=== PATIENT | female | born 1960 | race Caucasian/White ===

== ENCOUNTER → 2016-11-21 | Outpatient (CLI) | payer BC, OTHER ==
--- NOTE | 2016-11-21 08:16 | CT ---
EXAMINATION TYPE: CT foot LT wo con DATE OF EXAM: 11/21/2016 COMPARISON: NONE HISTORY: Left foot pain CT DLP: 210.6 mGycm Automated exposure control for dose reduction was used. Unenhanced CT of the left foot was performed. FINDINGS: I do not see evidence for a displaced fracture or dislocation. There is degenerative narrowing involv ing the tarsal and tarsometatarsal joints with a bony spur formation identified and subchondral cyst formation. Pes planus deformity is identified as well as pes planovalgus foot deformity. Ligamentous and tendinous structures not appropriately evaluated on this examination. The Achilles tendon is emily sly intact. Ankle mortise is intact. IMPRESSION: CHANGES OF OSTEOARTHRITIS AND FLATFOOT DEFORMITY.
== END | disposition home or self-care (01) ==
LOC: RADCTMAIN 07:15
PROVIDERS: ATTEND Orthopaedic Surgery
DX: M19.072 Primary osteoarthritis, left ankle and foot (principal)

== ENCOUNTER → 2018-01-25 | Outpatient (CLI) | payer BC ==
--- NOTE | 2018-01-27 04:34 | MR ---
EXAMINATION TYPE: MR ankle LT wo con DATE OF EXAM: 01/25/2018 COMPARISON: None HISTORY: Lt ankle pain, swelling, limited movement x 2-3 mos Standard multiplanar, multisequence MRI departmental protocol Multiplanar, multisequence images of the left ankle were acquired. FINDINGS: Achilles tendon is intact. Plantar fascia appears intact. There is small plantar calcaneal spurring. There is mild ankle joint effusion. There is 12 mm area of degenerative cystic change in th e anterior calcaneus near the subtalar joint. The collateral ligaments are intact. Ankle mortise is a natomic. There is no evidence of a fracture. There are small degenerative cysts in the inferior talus at the subtalar joint. There is patchy edema in the anterior navicular and also anterior first [place] form bone. There is moderate spurring at the first tarsometatarsal joint. There is edema on both side s of the first second tarsometatarsal joints. The medial and lateral flexor tendons of the ankle appear intact. There is no evidence of a soft tiss ue mass. IMPRESSION: There is mild ankle joint effusion. There is mild osteoarthritis with degenerative cysts on both side s of the subtalar joint. Hypertrophic osteoarthritis in the intertarsal joints on the medial side of the mid foot and the firs t and second tarsometatarsal joint. No fracture seen.
== END | disposition home or self-care (01) ==
LOC: RADMRIMAIN 08:43
PROVIDERS: ATTEND Orthopaedic Surgery
DX: M19.072 Primary osteoarthritis, left ankle and foot (principal); M85.672 Other cyst of bone, left ankle and foot

== ENCOUNTER → 2021-06-21 | Outpatient (CLI) | payer OTHER ==
--- NOTE | 2021-06-22 09:30 | MR ---
EXAMINATION TYPE: MR brain and iac wo/w con DATE OF EXAM: 06/21/2021 COMPARISON: HISTORY: Plugged ear, Hearing loss Rt ear TECHNIQUE: Multiplanar, multisequence images of the brain and brainstem is performed without and with IV contras t, small [id number] and high resolution images obtained through the internal auditory canals, util izing 5.5 mL intravenous Gadavist . FINDINGS: There is motion, artifact on the exam. Diffusion weighted images demonstrate no evidence of a recent infarct or other diffusion abnormality. There is no extra-axial fluid collection. Periventricular, pericallosal, subcortical confluent and scattered hyperintensities are present within the white matter on inversion recovery T2-weighted sequ ences. The ventricular system and cisternal spaces are normal in size and appearance. The brain volu me is age appropriate, there is cortical atrophy. The cerebellopontine angles show no mass, there is no abnormal enhancement along the bleach range operator y canals, no evident abnormal soft tissue Midline structures demonstrate normal morphology. The craniocervical junction appears within normal limits. Post contrast images demonstrate no abnormal enhancement. The dural venous sinuses appear pa tent. The visualized sinuses are remarkable for some mucosal disease in the ethmoid air cells, maxill esperanza sinus right greater than left and the globes are intact. IMPRESSION: Nonspecific white matter demyelination likely related to chronic small vessel ischemia, t here is age-related atrophy. No evident cerebellopontine angle mass. Sinus disease.
== END | disposition home or self-care (01) ==
LOC: RADMRIMAIN 12:47
PROVIDERS: ATTEND Otolaryngology
DX: G37.8 Other specified demyelinating diseases of central nervous system (principal); J32.9 Chronic sinusitis, unspecified
CPT/HCPCS: 70553; A9585

== ENCOUNTER 2021-09-15 20:20 | Observation (INO) | payer OTHER ==
--- NOTE | 2021-09-15 21:24 | CT ---
EXAMINATION TYPE: CT brain cspine wo con DATE OF EXAM: 09/15/2021 COMPARISON: None HISTORY: fall, ETOH CT DLP: 1322.4 mGycm Automated exposure control for dose reduction was used. There is mild cerebral atrophy. There is no mass effect nor midline shift. No sign of intracranial he morrhage. Calvarium is intact. There is normal aeration of the mastoid sinuses. IMPRESSION: Cerebral atrophy. No acute intracranial abnormality.
--- NOTE | 2021-09-15 21:49 | XR ---
EXAMINATION TYPE: XR forearm LT DATE OF EXAM: 09/15/2021 COMPARISON: NONE HISTORY: Pain TECHNIQUE: 2 views FINDINGS: Radius and ulna appear intact. Elbow joint and wrist joint appear intact. No fracture seen. IMPRESSION: Negative left forearm exam.
[2021-09-15] MEDS ORDERED: LORazepam 1 MG TAB PO STA (22:09)
[2021-09-15 23:21] LABS: Basophils # (A) 0.1 k/uL (0-0.2); Basophils % (A) 2 %; Eosinophils % (A) 1 %; HCT 47.8 % (34.0-46.0); Lymphocytes % (A) 15 %; MCH 34.2 pg (25.0-35.0); MCHC 31.5 g/dL (31.0-37.0); MCV 108.7 fL (80.0-100.0); Macrocytosis Moderate; Mean Platelet Volume 7.3; Monocytes # (A) 0.4 k/uL (0-1.0); Monocytes % (A) 6 %; Neutrophils % (A) 76 %; Platelet Count 196 k/uL (150-450); WBC 6.6 k/uL (3.8-10.6)
[2021-09-15] MEDS ORDERED: ONDANSETRON 4 MG/2 ML VIAL IVP PRN (23:23)
[2021-09-15] MEDS ORDERED: NALOXONE 0.4 MG/ML 1 ML VIAL IV PRN (23:23)
--- NOTE | 2021-09-15 23:23 | ED ---
Fall HPI - General Chief Complaint: Fall Stated Complaint: Fall, ETOH Time Seen by Provider: 09/15/21 20:35 Source: patient, EMS Mode of arrival: EMS - History of Present Illness Initial Comments: 61-year-old female with past history of alcohol abuse presents to the emergency department for multiple falls. and daughter at bedside provide the history. States that the patient has been drinking heavily every day for quite some time. Recently the patient began having multiple falls due to her intoxication. Yesterday she fell and hit her head and suffered an abrasion. She drank a pint of alcohol today and fell. It was unwitnessed. She also got scratched by her daughter's dog and sustained a skin tear to her left forearm that was bleeding pretty profusely. Family stated that she was out of control and they were concerned that she was given a severely injure herself and therefore they called an ambulance. Patient is resistant to go to rehab. Patient denies any complaints at this time - Related Data Previous Rx's Medication Instructions Recorded Amoxic-Pot Clav 875-125Mg 1 tab PO BID 7 Days #14 tab 09/17/21 [Augmentin 875-125] Famotidine [Pepcid] 20 mg PO DAILY #30 tablet 09/17/21 LORazepam [Ativan] 1 mg PO BID PRN 3 Days #6 tab 09/17/21 Magnesium Oxide [Mag-Ox] 250 mg PO BID 7 Days #14 tablet 09/17/21 Thiamine [Vitamin B-1] 100 mg PO BID-W/MEALS #60 tab 09/17/21 Allergies Allergy/AdvReac Type Severity Reaction Status Date / Time No Known Allergies Allergy Verified 09/15/21 21:24 Review of Systems ROS Statement: Those systems with pertinent positive or pertinent negative responses have been documented in the HPI. ROS Other: All systems not noted in ROS Statement are negative. Past Medical History Past Medical History: No Reported History History of Any Multi-Drug Resistant Organisms: None Reported Past Surgical History: Orthopedic Surgery Past Psychological History: No Psychological Hx Reported Smoking Status: Never smoker Past Alcohol Use History: Daily Past Drug Use History: None Reported General Exam Limitations: no limitations General appearance: alert, in no apparent distress, appears intoxicated Head exam: Present: normocephalic, normal inspection, other (abrasion left [facility]) Eye exam: Present: normal appearance, PERRL, EOMI. Absent: scleral icterus, co njunctival injection, periorbital swelling ENT exam: Present: normal exam, mucous membranes moist Neck exam: Present: normal inspection. Absent: tenderness, meningismus, lymphadenopathy Respiratory exam: Present: normal lung sounds bilaterally. Absent: respiratory distress, wheezes, rales, rhonchi, stridor Cardiovascular Exam: Present: regular rate, normal rhythm, normal heart sounds. Absent: systolic murmur, diastolic murmur, rubs, gallop, clicks GI/Abdominal exam: Present: soft, normal bowel sounds. Absent: distended, tenderness, guarding, rebound, rigid Extremities exam: Present: normal inspection, full ROM, normal capillary refill. Absent: tenderness, pedal edema, joint swelling, calf tenderness Back exam: Present: normal inspection Neurological exam: Present: alert, altered, CN II-XII intact Psychiatric exam: Present: agitated Skin exam: Present: warm, dry, intact, normal color. Absent: rash Course Vital Signs 09/15/21 09/15/21 20:34 23:54 Temperature 98.1 F Pulse Rate 86 78 Respiratory 18 18 Rate Blood Pressure 151/93 116/78 O2 Sat by Pulse 98 98 Oximetry Medical Decision Making - Medical Decision Making Upon arrival the patient is placed in room 27. A thorough history and physical exam was performed. Patient does have obvious signs of healing head injury. She also has a skin tear to the left arm. Area is cleansed and wrapped. Patient is given a dose of Augmentin. She is sent over for a CT of her head and cervical spine which demonstrates cerebral atrophy with no acute intracranial ab normality. Forearm x-ray demonstrates no acute fractures or retained foreign bodies. Patient's does have an alcohol level of 312 by breathalyzer. I did discuss treatment plan. A family at bedside refuses to take the patient home. They state that they were concerned that the patient may significantly harm herself and her refusing to sign discharge paperwork. Patient will be admitted awaiting sobriety and may sign herself out at that time. - Lab Data Result diagrams: 09/16/21 08:09 09/17/21 06:41 Lab Results 09/15/21 09/15/21 Range/Units 23:10 23:10 WBC 6.6 (3.8-10.6) k/uL RBC 4.40 (3.80-5.40) m/uL Hgb 15.0 (11.4-16.0) gm/dL Hct 47.8 H (34.0-46.0) % MCV 108.7 H (80.0-100.0) fL MCH 34.2 (25.0-35.0) pg MCHC 31.5 (31.0-37.0) g/dL RDW 12.0 (11.5-15.5) % Plt Count 196 (150-450) k/uL MPV 7.3 Neutrophils % 76 % Lymphocytes % 15 % Monocytes % 6 % Eosinophils % 1 % Basophils % 2 % Neutrophils # 5.0 (1.3-7.7) k/uL Lymphocytes # 1.0 (1.0-4.8) k/uL Monocytes # 0.4 (0-1.0) k/uL Eosinophils # 0.0 (0-0.7) k/uL Basophils # 0.1 (0-0.2) k/uL Manual Slide Review Performed Macrocytosis Moderate Sodium 149 H (137-145) mmol/L Potassium 3.4 L (3.5-5.1) mmol/L Chloride 108 H (98-107) mmol/L Carbon Dioxide 27 (22-30) mmol/L Anion Gap 14 mmol/L BUN 5 L (7-17) mg/dL Creatinine 0.35 L (0.52-1.04) mg/dL Est GFR (CKD-EPI)AfAm >90 (>60 ml/min/1.73 sqM) Est GFR (CKD-EPI)NonAf >90 (>60 ml/min/1.73 sqM) Glucose 92 (74-99) mg/dL Calcium 8.2 L (8.4-10.2) mg/dL Total Bilirubin 0.8 (0.2-1.3) mg/dL AST 165 H (14-36) U/L ALT 44 H (4-34) U/L Alkaline Phosphatase 171 H (38-126) U/L Total Protein 7.5 (6.3-8.2) g/dL Albumin 4.2 (3.5-5.0) g/dL Serum Alcohol 390 H* mg/dL Disposition Clinical Impression: Multiple falls, Scalp abrasion, Skin tear, Alcohol intoxication, Concussion without loss of consciousness Disposition: ADMITTED IP TO THIS HOSP Condition: Stable Is patient prescribed a controlled substance at d/c from ED?: No Time of Disposition: 23:23 Decision to Admit Reason: Admit from EC Decision Date: 09/15/21 Decision Time: 23:23
[2021-09-15] MEDS ORDERED: LORazepam 2 MG/ML INJ IV PRN ×3 (23:26)
[2021-09-15] MEDS ORDERED: THIAMINE 100 MG/ML 2 ML VIAL IM STA (23:26)
[2021-09-15 23:30] LABS: ALT 44 U/L (4-34); AST 165 U/L (14-36); African American GFR (CKD) >90 (>60 ml/min/1.73 sqM); Albumin 4.2 g/dL (3.5-5.0); Alkaline Phosphatase 171 U/L (38-126); Anion Gap 14 mmol/L; Blood Urea Nitrogen 5 mg/dL (7-17); Calcium 8.2 mg/dL (8.4-10.2); Carbon Dioxide 27 mmol/L (22-30); Chloride 108 mmol/L (98-107); Glucose 92 mg/dL (74-99); Non-African American GFR(CKD) >90 (>60 ml/min/1.73 sqM); Potassium 3.4 mmol/L (3.5-5.1); Sodium 149 mmol/L (137-145); Total Bilirubin 0.8 mg/dL (0.2-1.3); Total Protein 7.5 g/dL (6.3-8.2)
[2021-09-15] MEDS: THIAMINE 100 MG TAB PO SCH (23:42)
[2021-09-15] MEDS: SODIUM CHLORIDE 0.9% 1,000 ML IV SCH (23:43)
[2021-09-15 23:45] LABS: Alcohol 390 mg/dL
[2021-09-15] MEDS: AMOXIC-POT CLAV 875-125MG 1 EACH TAB PO SCH (23:54)
[2021-09-16 08:37] LABS: Basophils % (A) 0 %; Eosinophils % (A) 0 %; HCT 38.3 % (34.0-46.0); HGB 12.4 gm/dL (11.4-16.0); Lymphocytes # (A) 0.7 k/uL (1.0-4.8); Lymphocytes % (A) 19 %; MCH 34.8 pg (25.0-35.0); MCHC 32.4 g/dL (31.0-37.0); MCV 107.3 fL (80.0-100.0); Macrocytosis Moderate; Mean Platelet Volume 7.3; Monocytes # (A) 0.2 k/uL (0-1.0); Monocytes % (A) 6 %; Neutrophils # (A) 2.8 k/uL (1.3-7.7); Neutrophils % (A) 73 %; Platelet Count 157 k/uL (150-450); RBC 3.57 m/uL (3.80-5.40); RDW 12.8 % (11.5-15.5); WBC 3.8 k/uL (3.8-10.6)
[2021-09-16 08:50] LABS: African American GFR (CKD) >90 (>60 ml/min/1.73 sqM); Anion Gap 10 mmol/L; Blood Urea Nitrogen 3 mg/dL (7-17); Calcium 6.9 mg/dL (8.4-10.2); Carbon Dioxide 23 mmol/L (22-30); Chloride 109 mmol/L (98-107); Glucose 71 mg/dL (74-99); Non-African American GFR(CKD) >90 (>60 ml/min/1.73 sqM); Potassium 3.3 mmol/L (3.5-5.1); Sodium 142 mmol/L (137-145)
[2021-09-16] MEDS: THIAMINE 100 MG TAB PO SCH ×2 (09:41→18:08)
[2021-09-16] MEDS: AMOXIC-POT CLAV 875-125MG 1 EACH TAB PO SCH ×2 (09:41→20:42)
[2021-09-16 10:10] VITALS: BMI 18.2
[2021-09-16] MEDS ORDERED: POTASSIUM CHLORIDE ER 20 MEQ TAB.ER PO STA ×2 (10:13→14:00)
[2021-09-16] MEDS: SODIUM CHLORIDE 0.9% 1,000 ML IV SCH ×2 (11:35→20:42)
--- NOTE | 2021-09-16 22:40 | P.HPIM ---
History of Present Illness H&P Date: 09/16/21 Chief Complaint: Acute alcohol intoxication, fall This is a 61 year old female with history of chronic alcohol abuse who presents to the emergency room with reports of multiple falls at home. Per family patient was out of control and they called an ambulance. Patient had fallen at home which resulted in abrasion to her left forearm that required gauze bandage, today there is no bleeding form wound. Started on oral augmentin for wound prophylaxis as she was also scratched by her daughters dog. Left forearm xray negative. CT brain cervical spine negative for acute intracranial injury. On admission serum alcohol was 390, sodium 149, potassium 3.4, chloride 108, BUN 5, creat 0.35. Liver enzymes are elevated. At the time of my exam she is alert and oriented x 3. She denies withdrawal symptoms currently. She has been having intermittent tremors. On CIWA protocol and has had IV ativan one time yesterday evening while in the [facility]. Family at the bedside states that she will stop drinking for a few days and start up again and has been progressively worse. The also endorse concern for her gait as she has had multiple foot ankle surgeries and worried she will continue to fall with injury if she keeps drinking. She admits to 2 mixed drinks of orange juice and vodka per day. She does not smoke. She is currently not working. She is receiving IV fluids and also has been started on thiamine supplementation. She is admitted to the hospital for observation and acute alcohol intoxication. Patient is counseled on alcohol cessation. At this time she verbalizes she wants to quit and will be monitored for acute alcohol withdrawal on CIWA protocol. Will also check a urinalysis. REVIEW OF SYSTEMS: CONSTITUTIONAL: Denies fever, Denies fatigue, Denies malaise. HEENT: No recent visual problems or hearing problems. Denied any sore throat. CARDIOVASCULAR: No chest pain, orthopnea, PND, no palpitations, no syncope. PULMONARY: No shortness of breath, no cough, no hemoptysis. GASTROINTESTINAL: Denies nausea vomiting diarrhea NEUROLOGICAL: No headaches, no weakness, no numbness. HEMATOLOGICAL: Denies any bleeding or petechiae. GENITOURINARY: Denies any burning micturition, frequency, or urgency. MUSCULOSKELETAL/RHEUMATOLOGICAL: Denies any joint pain, swelling, or any muscle pain. ENDOCRINE: Denies any polyuria or polydipsia. The rest of the 14-point review of systems is negative. PHYSICAL EXAMINATION: GENERAL: The patient is alert and oriented x3, in good health. Well developed, well nourished. HEENT: Pupils are round and equally reacting to light. EOMI. No scleral icterus. No conjunctival pallor. Normocephalic, atraumatic. No pharyngeal erythema. No thyromegaly. CARDIOVASCULAR: S1 and S2 present. No murmurs, rubs, or gallops. PULMONARY: Lungs are clear to auscultation, no wheezing, crackles, or rales. ABDOMEN: Soft, nontender, nondistended, normoactive bowel sounds. No palpable organomegaly. MUSCULOSKELETAL: No joint swelling or deformity. EXTREMITIES: No cyanosis, clubbing, or pedal edema. NEUROLOGICAL: Gross neurological examination did not reveal any focal deficits. Mild bilateral arm tremoring when arms extended. SKIN: No rashes. Dressing intact to left forearm. Assessment and Plan Assessment Acute alcohol intoxication will be monitored for acute alcohol withdrawal and continue on CIWA protocol. Alcoholic hepatitis with elevated LFT's will monitor trends Fall with injury to left forearm and also dog scratch will be started on oral augmentin and continue with local wound care Hypernatremia improved with hydration Hypokalemia History orthopedic surgery Chronic alcohol abuse GI Prophylaxis she is on IV protonix Full Code Plan This is a 61 year old female who is admitted in observation for acute alcohol intoxication. Continue CIWA protocol Monitor for acute alcohol withdrawal Continue IV fluids Repeat LFTS Patient counseled on alcohol cessation, at this time patient wishes to quit and will monitor for acute withdrawal and patient will most likely discharge on librium taper. Social work will be consulted to provide outpatient resources including voluntary rehab and AA. PT/OT consultation The impression and plan of care has been dictated by Jazmin Oglesby Nurse Practitioner as directed. Dr. Kevin MD I have performed a history and physical examination and medical decision making of this patient, discussed the same with the dictator, and agree with the dictators assessment and plan as written, documented as a scribe. Based on total visit time, I have performed more than 50% of this visit. Past Medical History Past Medical History: No Reported History History of Any Multi-Drug Resistant Organisms: None Reported Past Surgical History: Section, Joint Replacement, Orthopedic Surgery Additional Past Surgical History / Comment(s): Bilateral shoulder surgeries. Left foot/ankle surgery. Past Anesthesia/Blood Transfusion Reactions: No Reported Reaction Past Psychological History: Anxiety Smoking Status: Never smoker Additional Past Alcohol Use History / Comment(s): Pt denies drinking daily. She states she drinks occasionally. Pt's spouse and dtr states she drinks daily and heavily. Past Drug Use History: None Reported Medications and Allergies Home Medications Medication Instructions Recorded Confirmed Type No Known Home Medications 01/16/14 09/15/21 History Allergies Allergy/AdvReac Type Severity Reaction Status Date / Time No Known Allergies Allergy Verified 09/15/21 21:24 Physical Exam Vitals: Vital Signs Temp Pulse Pulse Resp BP BP Pulse Ox 09/16/21 07:00 99.8 F H 89 17 134/79 96 09/16/21 02:00 77 17 09/16/21 01:02 98.1 F 77 17 124/80 96 09/15/21 23:54 78 18 116/78 98 09/15/21 20:34 98.1 F 86 18 151/93 98 Intake and Output 09/15/21 09/16/21 09/16/21 22:59 06:59 14:59 Intake Total 400 Output Total 1 Balance -1 400 Intake: Oral 400 Output: Emesis 1 Other: Voiding Method Toilet # Voids 1 Weight 54.431 kg 54.431 kg 54.431 kg Results CBC & Chem 7: 09/16/21 08:09 09/16/21 08:09 Labs: Abnormal Lab Results - Last 24 Hours (Table) 09/15/21 09/15/21 09/16/21 Range/Units 23:10 23:10 08:09 RBC 3.57 L (3.80-5.40) m/uL Hct 47.8 H (34.0-46.0) % MCV 108.7 H 107.3 H (80.0-100.0) fL Lymphocytes # 0.7 L (1.0-4.8) k/uL Sodium 149 H (137-145) mmol/L Potassium 3.4 L (3.5-5.1) mmol/L Chloride 108 H (98-107) mmol/L BUN 5 L (7-17) mg/dL Creatinine 0.35 L (0.52-1.04) mg/dL Glucose (74-99) mg/dL Calcium 8.2 L (8.4-10.2) mg/dL AST 165 H (14-36) U/L ALT 44 H (4-34) U/L Alkaline Phosphatase 171 H (38-126) U/L Serum Alcohol 390 H* mg/dL 09/16/21 Range/Units 08:09 RBC (3.80-5.40) m/uL Hct (34.0-46.0) % MCV (80.0-100.0) fL Lymphocytes # (1.0-4.8) k/uL Sodium (137-145) mmol/L Potassium 3.3 L (3.5-5.1) mmol/L Chloride 109 H (98-107) mmol/L BUN 3 L (7-17) mg/dL Creatinine 0.37 L (0.52-1.04) mg/dL Glucose 71 L (74-99) mg/dL Calcium 6.9 L (8.4-10.2) mg/dL AST (14-36) U/L ALT (4-34) U/L Alkaline Phosphatase (38-126) U/L Serum Alcohol mg/dL Thrombosis Risk Factor Assmnt - Choose All That Apply Any of the Below Risk Factors Present?: Yes Each Factor Represents 1 point: Age 41-60 years Other Risk Factors: No Other congenital or acquired thrombophilia - If yes, enter type in comment: No Thrombosis Risk Factor Assessment Total Risk Factor Score: 1 Thrombosis Risk Factor Assessment Level: Low Risk Assessment and Plan Time with Patient: Less than 30
[2021-09-17] MEDS: SODIUM CHLORIDE 0.9% 1,000 ML IV SCH (07:19)
[2021-09-17] MEDS: THIAMINE 100 MG TAB PO SCH ×2 (08:17→16:59)
[2021-09-17] MEDS: AMOXIC-POT CLAV 875-125MG 1 EACH TAB PO SCH (08:17)
[2021-09-17 10:11] LABS: African American GFR (CKD) 142.1 (60.0-200.0); BUN/Creat Ratio 11.11 Ratio (12.00-20.00); Blood Urea Nitrogen 3.5 mg/dL (9.0-27.0); Calcium 7.3 mg/dL (8.7-10.3); Carbon Dioxide 23.4 mmol/L (20.0-27.5); Magnesium 1.4 mg/dL (1.5-2.4); Non-African American GFR(CKD) 122.6 (60.0-200.0); Potassium 3.7 mmol/L (3.5-5.5)
[2021-09-17] MEDS: MAGNESIUM SULFATE-D5W PMX 1 GM in DEXTROSE/WATER 1 100ML.BAG IVPB SCH ×3 (13:02→15:30)
[2021-09-17 14:51] VITALS: BP 163/100; PULSE 72; RESP 17; TEMP 98.3
--- NOTE | 2021-09-17 18:14 | P.DS ---
Providers Date of admission: 09/15/21 23:23 Attending physician: Viki Danielle MD Primary care physician: Brandon Dougherty Hospital Course: Final Diagnosis Acute alcohol intoxication, patient monitored for 2 nights with out evidence for acute alcohol withdrawal Alcoholic hepatitis with elevated LFT's Fall with injury to left forearm and also dog scratch will be started on oral augmentin and continue with local wound care Hypernatremia improved with hydration Hypokalemia, improved Hypomagnesemia, received supplementation History orthopedic surgery Chronic daily alcohol abuse Full Code Discharge disposition Patient is stable for discharge home. She is comfortable extensively many for complete alcohol cessation. She is provided with outside community resources including in [facility], [place]. She will also follow-up with Dr. Dougherty in 1-2 days. Hospital Course This is a 61 year old female with history of chronic alcohol abuse who presents to the emergency room with reports of multiple falls at home. Per family patient was out of control and they called an ambulance. Patient had fallen at home while intoxicated. Started on oral augmentin for wound prophylaxis as she was also scratched by her daughters dog and the wound was bleeding, it is wrapped with gauze now. Left forearm xray negative. CT brain cervical spine negative for acute intracranial injury. On admission serum alcohol was 390, sodium 149, potassium 3.4, chloride 108, BUN 5, creat 0.35. Liver enzymes are elevated. At the time of my exam she is alert and oriented x 3. She denies withdrawal symptoms currently. She has been having intermittent tremors. On CIWA protocol and has had IV ativan one time yesterday evening while in the [facility]. Family at the bedside states that she will stop drinking for a few days and start up again and has been progressively worse. The also endorse concern for her gait as she has had multiple foot ankle surgeries and worried she will continue to fall with injury if she keeps drinking. She admits to 2 mixed drinks of orange juice and vodka per day. She does not smoke. She is currently not working. She was hydrated with normal saline and started on thiamine supplementation. She is admitted to the hospital for observation and acute alcohol intoxication. Patient is counseled on alcohol cessation. She was monitored overnight with no concern for acute alcohol withdrawal. She did not receive any IV Ativan. She continues to verbalizes understanding for alcohol cessation and reports a desire for rehab such as [facility]. Discussed with family that this is voluntary and she needs to make the call. They will continue to show support for her. On 09/17/2021 Patient is evaluated today resting in bed. She denies any headache, tremors, nausea vomiting. There is no diarrhea and abdominal pain. She denies any hallucinations, sensitivity to light or noise. She has not received any Ativan throughout the evening. Labs today show sodium of 142, potassium 3.7, chloride 108, BUN 3.5, creatinine 0.3, glucose in the 70s, magnesium 1.4. She did receive 3 bags of IV magnesium today. And 40 mEq potassium. Her blood pressure today is 143/82, she is 90% room air, heart rate is in the 70s and she is afebrile. She is discharged on oral Ativan twice a day for acute alcohol withdrawal. She is instructed to not drink while taking this medication. She is given a three-day supply and will need to follow-up with her PCP 1-2 days post discharge she is agreeable to this. She is also discharged on oral thiamine twice a day. Her left forearm abrasion is clean. Continue with local wound care and she'll complete a course of oral Augmentin for 7 more days outpatient. Lungs are clear, S1-S2 auscultated, abdomen is soft nontender. Focal neurological exam is negative. Please see medication reconciliation for a list of current medication. Thank you for allowing us to participate in the care of this patient. The impression and plan of care has been dictated by Jazmin Oglesby, Nurse Practitioner as directed. Dr. Kevin MD I have performed a history and physical examination and medical decision making of this patient, discussed the same with the dictator, and agree with the dictators assessment and plan as written, documented as a scribe. Based on total visit time, I have performed more than 50% of this visit. Patient Condition at Discharge: Stable Plan - Discharge Summary New Discharge Prescriptions: New LORazepam [Ativan] 1 mg PO BID PRN 3 Days #6 tab PRN Reason: Alcohol Withdrawal Thiamine [Vitamin B-1] 100 mg PO BID-W/MEALS #60 tab Famotidine [Pepcid] 20 mg PO DAILY #30 tablet Magnesium Oxide [Mag-Ox] 250 mg PO BID 7 Days #14 tablet Discharge Medication List Famotidine [Pepcid] 20 mg PO DAILY #30 tablet 09/17/21 [Rx] LORazepam [Ativan] 1 mg PO BID PRN 3 Days #6 tab 09/17/21 [Rx] Magnesium Oxide [Mag-Ox] 250 mg PO BID 7 Days #14 tablet 09/17/21 [Rx] Thiamine [Vitamin B-1] 100 mg PO BID-W/MEALS #60 tab 09/17/21 [Rx] Follow up Appointment(s)/Referral(s): [facility] [Outside] - 1-2 Days [facility] [Outside] - 1 Week Brandon Dougherty MD [Primary Care Provider] - 1-2 days Patient Instructions/Handouts: Alcohol Withdrawal (DC) Activity/Diet/Wound Care/Special Instructions: Recommend total alcohol cessation Continue with oral ativan as needed for acute alcohol withdrawal symptoms Do not drink while taking this medication Information for [facility] and [facility] mental health has been provided Information regarding AA has also been provided Discharge/Stand Alone Forms: AA Meetings [place], Who Do I Call?, Community Resources, Help In The Home, Outpatient Counseling Discharge Disposition: HOME SELF-CARE
== END 2021-09-17 17:30 | disposition home or self-care (01) ==
LOC: EC 20:20 → 6NMEDSUR 23:23
PROVIDERS: ADMIT Internal Medicine; ATTEND Internal Medicine
DX: F10.129 Alcohol abuse with intoxication, unspecified (principal); Y90.8 Blood alcohol level of 240 mg/100 ml or more; K70.10 Alcoholic hepatitis without ascites; S50.812A Abrasion of left forearm, initial encounter; S00.01XA Abrasion of scalp, initial encounter; E87.0 Hyperosmolality and hypernatremia; E87.6 Hypokalemia; F41.9 Anxiety disorder, unspecified; E83.42 Hypomagnesemia; R25.1 Tremor, unspecified; S06.0X0A Concussion without loss of consciousness, initial encounter; Z71.41 Alcohol abuse counseling and surveillance of alcoholic; W19.XXXA Unspecified fall, initial encounter; R29.6 Repeated falls; Z79.899 Other long term (current) drug therapy; Y92.009 Unspecified place in unspecified non-institutional (private) residence as the place of occurrence of the external cause; X58.XXXA Exposure to other specified factors, initial encounter
CPT/HCPCS: 96365; 96366; 96372; 96361; 99285; 36415; 80053; 80048 ×2; 83735; 85025 ×2; 80320; 73090; 72125; 70450; G0378 ×3; J3411; J3475

== ENCOUNTER 2021-11-16 17:49 | Emergency (ER) | payer OTHER ==
[2021-11-16 18:00] VITALS: BP 148/99; PULSE 98; RESP 18; TEMP 97.7
--- NOTE | 2021-11-16 19:02 | CT ---
EXAMINATION TYPE: CT brain wo con DATE OF EXAM: 11/16/2021 EXAM: CT brain wo con CLINICAL HISTORY: Head pain/injury with possible syncope.. COMPARISON: 09/15/2021 TECHNIQUE: Contiguous axial noncontrast images of the brain were obtained. Coronal and sagittal refor mats were generated and reviewed. Automated dose control was used for this exam. FINDINGS: There is no evidence for intracranial hemorrhage, mass effect or midline shift. White matter is gross ly preserved. Ventricular size and configuration is within normal limits for degree of parenchymal volume. The paranasal sinuses are clear. The mastoid air cells are clear. No evidence for calvarial fracture. There is moderate occipital scalp hematoma. IMPRESSION: No acute intracranial abnormality. Occipital scalp hematoma.
--- NOTE | 2021-11-16 20:11 | ED ---
Fall HPI - General Chief Complaint: Fall Stated Complaint: FALL, head injury Time Seen by Provider: 11/16/21 18:05 Source: patient, EMS Mode of arrival: EMS - History of Present Illness Initial Comments: This 61-year-old female presents by EMS after she apparently tripped and fell. She states that she was walking over to her [id number]'s also when she tripped on the curb fell back and hit her head. She denies any loss of consciousness. She denies any nausea vomiting. She denies any other injuries. She denies any other neurologic complaints. Per nursing notes, there apparently is a history of alcohol use versus abuse and they've felt as though she is like alcohol. Upon asking the patient, she states that she does not drink alcohol. She denies any alcohol use today. She denies any drug abuse. She has no other complaints or modifying factors. - Related Data Previous Rx's Medication Instructions Recorded Amoxic-Pot Clav 875-125Mg 1 tab PO BID 7 Days #14 tab 09/17/21 [Augmentin 875-125] Famotidine [Pepcid] 20 mg PO DAILY #30 tablet 09/17/21 LORazepam [Ativan] 1 mg PO BID PRN 3 Days #6 tab 09/17/21 Magnesium Oxide [Mag-Ox] 250 mg PO BID 7 Days #14 tablet 09/17/21 Thiamine [Vitamin B-1] 100 mg PO BID-W/MEALS #60 tab 09/17/21 Allergies Allergy/AdvReac Type Severity Reaction Status Date / Time No Known Allergies Allergy Verified 11/16/21 18:00 Review of Systems ROS Statement: Those systems with pertinent positive or pertinent negative responses have been documented in the HPI. ROS Other: All systems not noted in ROS Statement are negative. Past Medical History Past Medical History: No Reported History History of Any Multi-Drug Resistant Organisms: None Reported Past Surgical History: Orthopedic Surgery Additional Past Surgical History / Comment(s): Bilateral shoulder surgeries. Left foot/ankle surgery. Past Anesthesia/Blood Transfusion Reactions: No Reported Reaction Past Psychological History: No Psychological Hx Reported Smoking Status: Never smoker Past Alcohol Use History: Daily, Heavy Past Drug Use History: None Reported General Exam - General Exam Comments Initial Comments: GENERAL: The patient is well nourished and well hydrated. No odor of alcohol is noted upon my examination. VITAL SIGNS: Heart rate, blood pressure, respiratory rate reviewed as recorded in nurse's notes. EYES: Pupils are round and reactive. Extraocular movements are intact. No conjunctival / lid redness or swelling. ENT: There is a posterior left scalp hematoma identified. There is some mild abrasion noted but no lacerations identified. Airway is patent. Throat is clear. NECK: Nontender. No swelling or evidence of injury. No subcutaneous emphysema. Trachea is midline. No thyroid mass. HEART: Regular rate and rhythm. Good peripheral pulses. LUNGS/CHEST: Breath sounds clear and equal bilaterally. No rales, rhonchi, or wheezes. No ecchymosis, subcutaneous emphysema, or tenderness. ABDOMEN: Abdomen soft without tenderness. No palpable masses or organomegaly. No peritoneal signs. No abdominal wall swelling or ecchymosis. EXTREMITIES: No extremity tenderness. Normal muscle tone and function. No thoracolumbar tenderness. NEUROLOGIC: Sensation is grossly intact. Cranial nerve exam reveals face is symmetrical, tongue is midline, speech is clear. SKIN: No abrasions or ecchymosis is noted. No induration or masses noted. PSYCHIATRIC: Alert and oriented. Appropriate behavior and judgment. Limitations: altered mental status Course Vital Signs 11/16/21 17:52 Temperature 97.7 F Pulse Rate 98 Respiratory 18 Rate Blood Pressure 148/99 O2 Sat by Pulse 98 Oximetry Medical Decision Making - Medical Decision Making The patient was seen and examined. Upon initial examination, she is by herself and she is agreeable to having a computed tomography scan of her brain. She does relate that she is on aspirin but denies any other blood thinners. The computed tomography scan of brain does not show any acute processes. Heart rate through the course, shows up and asked the nurse to request an alcohol blood test. Upon relaying the results of the computed tomography scan to the patient and , I do ask her if it is okay for recheck her blood and she refuses. She, at this time, is alert and oriented, appropriate, and lucid. Is felt as though her medical decision-making is intact. She does not appear to be grossly significantly intoxicated is felt as though he would forego any further alcohol testing. While she may have some degree of intoxication, she does have medical decision-making intact and it is felt as though she stable for discharge. She is counseled regarding head injuries in detail. Return parameters are discussed. Close follow-up recommended. Disposition Clinical Impression: Fall, Head injury, Scalp hematoma, Scalp abrasion Disposition: HOME SELF-CARE Condition: Good Instructions (If sedation given, give patient instructions): Head Injury (ED), Abrasion (ED), Fall Prevention (ED) Is patient prescribed a controlled substance at d/c from ED?: No Referrals: Brandon Dougherty MD [Primary Care Provider] - 1-2 days Time of Disposition: 20:08
== END 2021-11-16 20:30 | disposition home or self-care (01) ==
LOC: EC 17:49
DX: S00.03XA Contusion of scalp, initial encounter (principal); S09.90XA Unspecified injury of head, initial encounter; Z53.29 Procedure and treatment not carried out because of patient's decision for other reasons; W01.10XA Fall on same level from slipping, tripping and stumbling with subsequent striking against unspecified object, initial encounter; Y93.01 Activity, walking, marching and hiking
CPT/HCPCS: 70450; 99284

== ENCOUNTER 2023-11-26 12:49 | Emergency (ER) | payer OTHER ==
[2023-11-26] MEDS ORDERED: SODIUM CHLORIDE 0.9% 1,000 ML BAG ONE (17:58)
[2023-11-27] MEDS ORDERED: THIAMINE 100 MG TAB ONE ×2 (08:17→20:36)
[2023-11-27] MEDS ORDERED: MULTIVITAMINS, THERA 1 EACH TAB ONE (08:17)
[2023-11-27] MEDS ORDERED: HEPARIN SODIUM,PORCINE 5,000 UNIT/ML 1 ML VIAL ONE (20:36)
[2023-11-27] MEDS ORDERED: FAMOTIDINE 20 MG TAB ONE (20:36)
[2023-11-28] MEDS ORDERED: HEPARIN SODIUM,PORCINE 5,000 UNIT/ML 1 ML VIAL ONE (07:57)
[2023-11-28] MEDS ORDERED: THIAMINE 100 MG TAB ONE ×2 (07:57→08:00)
[2023-11-28] MEDS ORDERED: MULTIVITAMINS, THERA 1 EACH TAB ONE (08:00)
[2023-11-28] MEDS ORDERED: MAGNESIUM SULFATE-D5W PMX 100 ML IVPB ONE (11:44)
[2023-11-28] MEDS ORDERED: POTASSIUM CHLORIDE ER 20 MEQ TAB.ER PO ONE (11:44)
== END 2023-11-28 16:30 | disposition home or self-care (01) ==
LOC: EC 12:49
CPT/HCPCS: 82075; 96360; 99284